=== PATIENT | male | born 1960 | race Caucasian/White ===

== ENCOUNTER 2024-07-29 09:04 | Day surgery (SDC) | payer OTHER ==
[~2024-07-29] VITALS: Ht 182.9 cm; Wt 96.1 kg
[~2024-07-29 09:04] MED LIST: ALBU90OI INH; ATOR10 PO; Aspir 8181 MG PO; HYDCHL25 PO; Isosorbide Mono30 MG PO; Lactated Ringer's 1,000 ML IV ONE; METO50ER PO; NITR.4SL SL; OMEP20ER PO; TELM40 PO
[2024-07-29] MEDS ORDERED: TELM80 (09:25)
[2024-07-29] MEDS ORDERED: DILT120ERA (09:25)
[2024-07-29] MEDS ORDERED: TORS10 (09:25)
[2024-07-29] MEDS ORDERED: Lidocaine HCl 4% 5 ML SDA ONE (09:47)
[2024-07-29] MEDS ORDERED: Lactated Ringer's 1,000 ML IV ONE (10:01)
[2024-07-29] MEDS ORDERED: Ipratropium/Albuterol SulF 2.5-0.5MG/3 ML Amp ONE (10:08)
[2024-07-29] MEDS ORDERED: Midazolam HCl 1MG / ML 2ML Vial ONE (10:10)
[2024-07-29] MEDS ORDERED: propofoL 50 ML IV ONE (10:15)
[2024-07-29 11:13] VITALS: BP 129/84
== END 2024-07-29 11:04 | disposition home or self-care (01) ==
LOC: ORSCSDS 09:04
PROVIDERS: Specialist
PROC: 0DJ08ZZ Inspection of Upper Intestinal Tract, Via Natural or Artificial Opening Endoscopic (ICD-10-PCS; principal; 2024-07-29 10:45)
DX: R13.10 Dysphagia, unspecified (principal); K22.10 Ulcer of esophagus without bleeding; K21.9 Gastro-esophageal reflux disease without esophagitis; R93.3 Abnormal findings on diagnostic imaging of other parts of digestive tract; K44.9 Diaphragmatic hernia without obstruction or gangrene; I25.10 Atherosclerotic heart disease of native coronary artery without angina pectoris; I25.2 Old myocardial infarction; J45.909 Unspecified asthma, uncomplicated; Z86.73 Personal history of transient ischemic attack (TIA), and cerebral infarction without residual deficits; Z79.899 Other long term (current) drug therapy; Z79.82 Long term (current) use of aspirin
CPT/HCPCS: J2003; J2250; J2704; J7120